=== PATIENT | male | born 1995 | race Caucasian/White ===

== ENCOUNTER 2019-01-07 23:35 | Emergency (ER) | payer OTHER ==
[~2019-01-07] VITALS: Ht 185.4 cm; Wt 72.6 kg
--- NOTE | 2019-01-07 23:50 | NUR ---
ARRIVAL: 23 YEAR OLD MALE AMBULATES INTO THE ER C/O DIZZY, STARTED 45 MINUTES AGO. HE IS TRAVELING FROM [place]
[2019-01-08 00:15] VITALS: BP 118/78
[2019-01-08 00:16] VITALS: BP 118/78
--- NOTE | 2019-01-08 00:23 | ER.PDOC ---
General Chief Complaint: Dizziness Stated Complaint: LIGHT HEADED Time seen by MD: 00:09 Source: patient Exam Limitations: no limitations History of Present Illness Initial Comments Pt has been driving about 10 hours today, stopped for gas about an hour ago and felt light-headed when he got out of the car. Had had some similar feelings while driving earlier. [place] tingling into hands and in chest as well. Denies chest pain then or now. No vomiting, had 3-4 loose stools yesterday Associated Symptoms: light headness Decreased Ability to Stand: walks w/o assistance Worsened By: standing postion Prior symptoms/Treatment: No Similar symptoms previous, No Recenly Seen Past Medical History Medical History: no pertinent history Surgical History: no surgical history LMP (females 10-50): N/A Not applicalbe Social History Smoking: non-smoker Alcohol Use: occassionally Drug Use: none Review of Systems Constitutional: no symptoms reported Eyes: no symptoms reported Ears: no symptoms reported Nose: no symptoms reported Mouth: no symptoms reported Throat: no symptoms reported Respiratory: no symptoms reported Cardiovascular: see HPI Genitourinary: no symptoms reported Musculoskeletal: no symptoms reported Psychiatric/Neurological: see HPI All Other Systems: Reviewed and Negative Physical Exam General Appearance: alert, no distress EENT: nml eye inspection, PERRL, no nystagmus, nml ENT inspection, pharynx nml, TM's nml Neck: supple Respiratory: no resp distress, breath sounds nml CVS: reg rate & rhythm, heart sounds.nml Abdomen: non-tender, no organomegaly, no distention Skin: color nml, no rash, warm/dry Extremities: non-tender, nml ROM, no pedal edema Neuro/Psych: nml orientation, nml speech/cognition, nml mood/affect Cranial Nerves: nml as tested, no evidence of acute CVA Cerebellar: nml as tested Sensorimotor: nml motor, nml sensation Results/Orders Results/Orders Orders - RADHA CROOKS DO Cbc With Auto Diff (01/08/19 00:18) Comprehensive Metabolic Panel (01/08/19 00:18) Creatine Kinase (01/08/19 00:18) Xr Chest 1v (01/08/19 00:18) Ekg-Routine (01/08/19 00:18) Vital Signs Date Time Temp Pulse Resp B/P (MAP) Pulse Ox O2 Delivery O2 Flow Rate FiO2 01/08/19 00:16 98.0 87 18 01/08/19 00:15 98.0 87 18 118/78 (91) 100 Room Air 01/08/19 00:12 98.3 87 18 100 Room Air Laboratory Tests Test 01/08/19 00:15 White Blood Count 10.7 10^3/uL (4.5-11.0) Red Blood Count 5.92 10^6/uL (4.50-5.90) H Hemoglobin 17.3 g/dL (13.9-16.3) H Hematocrit 49.4 % (37.0-53.0) Mean Corpuscular Volume 83.4 fL (78-100) Mean Corpuscular Hemoglobin 29.2 pg (26-34) Mean Corpuscular Hemoglobin Concent 35.0 g/dL (33-37) Red Cell Distribution Width 12.3 % (11.5-14.5) Platelet Count 220 10^3/uL (150-400) Mean Platelet Volume 10.9 fL (7.8-11.0) Neutrophils (%) (Auto) 75.1 % (41.0-85.0) Lymphocytes (%) (Auto) 16.2 % (24.0-44.0) L Monocytes (%) (Auto) 7.0 % (5.0-12.0) Neutrophils # (Auto) 8.0 10^3/uL (1.8-7.7) H Lymphocytes # (Auto) 1.7 10^3/uL (1.0-4.8) Monocytes # (Auto) 0.8 10^3/uL (0.3-0.8) Absolute Immature Granulocyte (auto 0.05 10^3 u/L (0-2) Immature Granulocytes % 0.50 % (0.00-0.50) Eosinophils % 0.6 % (0.0-5.0) Basophils % 0.6 % (0.0-0.2) H Basophils # 0.1 10^3/uL (0.0-0.1) Eosinophil Count 0.1 10^3/uL (0.0-0.2) Sodium Level 144 mmol/L (132-145) Potassium Level 3.7 mmol/L (3.6-5.2) Chloride Level 105.0 mmol/L (96-109) Carbon Dioxide Level 29.7 mmol/L (20.0-32) Anion Gap 13.0 Blood Urea Nitrogen 13 mg/dL (7-18) Creatinine 1.04 mg/dL (0.59-1.40) Estimated GFR () 106.2 (>/=60) BUN/Creatinine Ratio 12.0 Glucose Level 99 mg/dL (70-110) Calcium Level 9.8 mg/dL (8.4-10.5) Total Bilirubin 0.6 mg/dL (0.2-1.0) Aspartate Amino Transferase (AST) 12 U/L (0-35) Alanine Aminotransferase (ALT) 16 U/L (12-78) Alkaline Phosphatase 85 U/L (50-136) Total Creatine Kinase 43 U/L (39-308) Total Protein 7.8 g/dL (6.4-8.2) Albumin 4.4 g/dL (3.4-5.0) Globulin 3.4 Progress Progress Pt with some heme conc. on CBC, is travelling and not taking in much fluids. Appears symptoms are from hypovolemia. Pt drinking fluids well in ER. PROCEDURE:CHEST 1 VIEW COMPARISON:None. INDICATIONS:dizziness FINDINGS: LUNGS/PLEURA:No significant pulmonary parenchymal abnormalities. No effusions. VASCULATURE:Normal. Unremarkable pulmonary vasculature. CARDIAC:Normal. No cardiac silhouette abnormality or cardiomegaly. MEDIASTINUM:Normal. No visible mass or adenopathy. BONES:Normal. No fracture or visible bony lesion. OTHER:Negative. CONCLUSION:Normal examination. Dictated by: Rajan Huerta MD on 01/08/2019 at 00:29 AM /XRAY/CT/US EKG: NSR EKG Comments: no ischemia seen Departure Time of Disposition: 00:58 Disposition: 01 HOME, SELF-CARE Impression: Primary Impression: Vasovagal response Additional Impression: Hypovolemia due to dehydration Condition: Stable Referrals: PCP,UNKNOWN (PCP) PRIMARY CARE PROVIDER Duration or Time Spent with Pa: 20 Problem Qualifiers RADHA CROOKS DO Jan 08, 2019 00:23
--- NOTE | 2019-01-08 00:30 | PCM.EKG ---
[facility] Test Date: 2019-01-08 Test Time: 00:31:58 Pat Name: PERFECTO FONTANEZ [facility]: [id number] Room: Gender: M Machining Supervisor: AKILA : [id number] Requested By: RADHA CROOKS Order Number: [id number] Reading MD: Radha Crooks Measurements Intervals [place] Rate: 81 P: 77 MS: 144 QRS: 62 QRSD: 94 T: 70 QT: 372 QTc: 432 Interpretive Statements Normal sinus rhythm with sinus arrhythmia Normal ECG No previous ECG available for comparison Electronically Signed On 01-09-2019 16:35:57 CDT by Radha Crooks Please click the below link to view image of tracing.
--- NOTE | 2019-01-08 00:31 | DIREP ---
PROCEDURE:CHEST 1 VIEW COMPARISON:None. INDICATIONS:dizziness FINDINGS: LUNGS/PLEURA:No significant pulmonary parenchymal abnormalities. No effusions. VASCULATURE:Normal. Unremarkable pulmonary vasculature. CARDIAC:Normal. No cardiac silhouette abnormality or cardiomegaly. MEDIASTINUM:Normal. No visible mass or adenopathy. BONES:Normal. No fracture or visible bony lesion. OTHER:Negative. CONCLUSION:Normal examination. Dictated by: Rajan Huerta MD on 01/08/2019 at 00:29 AM
[2019-01-08 00:35] LABS: BASOPHIL # 0.1 10^3/uL (0.0-0.1); BASOPHIL % 0.6 % (0.0-0.2); EOSINOPHIL # 0.1 10^3/uL (0.0-0.2); EOSINOPHIL % 0.6 % (0.0-5.0); HEMOGLOBIN 17.3 g/dL (13.9-16.3); LYMPHOCYTES # 1.7 10^3/uL (1.0-4.8); LYMPHOCYTES % 16.2 % (24.0-44.0); MEAN CELL HGB 29.2 pg (26-34); MEAN CORP VOLUME 83.4 fL (78-100); MEAN PLATELET VOLUME 10.9 fL (7.8-11.0); MONOCYTES # 0.8 10^3/uL (0.3-0.8); NEUTROPHILS % 75.1 % (41.0-85.0); RED CELL DISTRIBUTION WIDTH 12.3 % (11.5-14.5); WHITE BLOOD CELL 10.7 10^3/uL (4.5-11.0)
[2019-01-08 00:54] LABS: CALCIUM 9.8 mg/dL (8.4-10.5); CARBON DIOXIDE 29.7 mmol/L (20.0-32)
[2019-01-08 01:02] VITALS: BP 112/2
[2019-01-08 01:24] VITALS: BP_SYST 112
== END 2019-01-08 01:30 | disposition home or self-care (01) ==
LOC: ER 23:35
DX: E86.1 Hypovolemia (principal); R55 Syncope and collapse; E86.0 Dehydration
CPT/HCPCS: 36415; 71045; 80053; 82550; 85025; 93005; 99285